=== PATIENT | female | born 1960 | race African-American/Black ===

== ENCOUNTER → 2017-04-30 | Outpatient (CLI) | payer SELFPAY | END | disposition home or self-care (01) | LOC: RAD 15:43 | DX: M54.5 Low back pain (principal); M79.605 Pain in left leg; M79.604 Pain in right leg | CPT/HCPCS: 72100 ==

== ENCOUNTER → 2017-09-23 | Outpatient (CLI) | payer SELFPAY | END | disposition home or self-care (01) | LOC: RAD 16:12 | DX: R91.8 Other nonspecific abnormal finding of lung field (principal) | CPT/HCPCS: 71046 ==

== ENCOUNTER → 2017-10-01 | Outpatient (CLI) | payer SELFPAY | END | disposition home or self-care (01) | LOC: RAD 09:51 | DX: R59.0 Localized enlarged lymph nodes (principal); R05 Cough | CPT/HCPCS: 71260 ==